=== PATIENT | female | born 2000 | race Caucasian/White ===

== ENCOUNTER 2023-06-13 20:50 | Emergency (ER) | payer SELFPAY ==
[~2023-06-13] VITALS: Ht 149.9 cm; Wt 63.5 kg
[2023-06-13 20:55] VITALS: BP_SYST 147; PULSE 100; RESP 17; TEMP 97.7; O2SAT 98
--- NOTE | 2023-06-13 21:00 | NUR ---
Patient triaged and placed in waiting room. VSS and patient appears in no acute distress at this time. Accompanied by self, awaiting available bed, and MD notified of need for MSE. Provided with urine cup.
--- NOTE | 2023-06-13 21:25 | NUR ---
Patient to ER bed 02 to gown for evaluation. Side rails up. Report given to CHRISTOPHER GONSALEZ.
--- NOTE | 2023-06-13 21:32 | NUR ---
PT BIB BY SELF C/O OF VOMITING, NAUSEA, BACK PAIN, AND LOWER PELVIC PAIN. PT HAS A HX OF FIBROIDS, OVARIAN CYST, AND ENDOMETRIOSIS. PT EYES OPEN SPONTANEOUSLY. PT IS ALERT AND ORIENTED TO PERSON, PLACE, TIME , AND SITUATION. PT OBEYS COMMANDS. PT DENIES AUDITORY OR VISUAL ISSUES. PT DENIES SOB OR CHEST PAIN. PT DENIES LIGHTHEADEDNESS. PT PULSES ARE WEAK ON THE RIGHT RADIAL. PT SKIN IS WARM TO TOUCH. PT DENIES MUSCULOSKELETAL PAIN AT THIS TIME. PT STATES SHE IS IN 6 OUT OF 10 PAIN IN THE LOWER PELVIS MD MADE AWARE AWATING NEW ORDERS. PT IN ROOM 2 ON THE MONITOR PLAN OF CARE CONTINUES.
--- NOTE | 2023-06-13 21:45 | NUR ---
PT UNABLE TO GIVE URINE FOR UA AND . MD MADE AWARE NO NEW ORDERS IN PLACE. PLAN OF CARE CONTINUES.
--- NOTE | 2023-06-13 21:54 | NUR ---
ER at bedside examining patient.
[2023-06-13] MEDS ORDERED: ONDANSETRON HCL 4 MG/2 ML VIAL IVP ONE (22:00)
[2023-06-13] MEDS ORDERED: NACL 0.9% 1,000 ML IV ONE (22:00)
[2023-06-13 22:17] LABS: BASOPHILS # (AUTO) 0.1 K/uL (0.0-0.2); BASOPHILS % (AUTO) 0.7 % (0.0-2.0); EOSINOPHILS % (AUTO) 0.3 % (0.0-4.0); HEMATOCRIT 41.7 % (36-48); HEMOGLOBIN 13.6 g/dL (12.0-16.0); LYMPHOCYTES # (AUTO) 1.9 K/uL (1.0-5.5); LYMPHOCYTES % (AUTO) 13.6 % (20.5-51.5); MEAN CORPUSCULAR HEMOGLOBIN 29 pg (27-31); MEAN CORPUSCULAR HGB CONC 33 % (32-36); MEAN CORPUSCULAR VOLUME 88 fL (79.0-98.0); MONOCYTES # (AUTO) 0.9 K/uL (0.0-1.0); MONOCYTES % (AUTO) 6.5 % (1.7-9.3); NEUTROPHILS % (AUTO) 78.9 % (40.0-70.0); PLATELET COUNT (AUTO) 370 K/uL (130-430); RED BLOOD CELL COUNT(AUTO) 4.72 MIL/uL (4.2-6.2)
[2023-06-13 22:27] LABS: ALBUMIN 3.6 g/dL (3.4-4.8); CALCIUM 8.6 mg/dL (8.4-11.0); CREATININE 0.58 mg/dL (0.55-1.30); TOTAL BILIRUBIN 0.4 mg/dL (0.0-1.0)
--- NOTE | 2023-06-13 22:44 | NUR ---
# 22 gauge angiocath placed to LEFT HAND. Use of asceptic technique. Opsite placed over site. Blood return noted. Flushed with 10 cc of normal saline. No evidence of infiltration noted. Patient tolerated well.
--- NOTE | 2023-06-13 22:45 | NUR ---
PT GIVEN 4MG ZOFRAN FOR NAUSEA AND VOMITING. PT STARTED ON 1L NS WIDE OPEN.
[2023-06-13 23:51] LABS: BILIRUBIN,URINE NEGATIVE (NEGATIVE); BLOOD, URINE 1+ (NEGATIVE); CLARITY/URINE CLEAR (CLEAR); COLOR,URINE YELLOW (YELLOW); GLUCOSE,URINE NEGATIVE (NEGATIVE); KETONES,URINE 1+ (NEGATIVE); LEUKOCYTE ESTERASE ,URINE NEGATIVE (NEGATIVE); NITRITE, URINE NEGATIVE (NEGATIVE); PROTEIN URINE NEGATIVE (NEGATIVE)
[2023-06-14 00:21] LABS: BACTERIA,URINE RARE /HPF (None Seen)
[2023-06-14] MEDS ORDERED: ONDA-8 TL (00:26)
[2023-06-14 01:01] VITALS: BP_SYST 117; PULSE 71; RESP 16; TEMP 97.7; O2SAT 97
--- NOTE | 2023-06-14 01:03 | NUR ---
Patient given written and verbal discharge instructions and verbalizes understanding. ER MD discussed with patient the results and treatment provided. Patient in stable condition. ID arm band removed. IV catheter removed intact and dressing applied, no active bleeding. Rx of ONDANSETRON given. Patient educated on pain management and to follow up with PMD. Pain Scale 6 OUT OF 10. Opportunity for questions provided and answered. Medication side effect fact sheet provided.
== END 2023-06-14 01:03 | disposition home or self-care (01) ==
LOC: SED 20:50
DX: Z11.3 Encounter for screening for infections with a predominantly sexual mode of transmission (principal); R11.10 Vomiting, unspecified; R10.9 Unspecified abdominal pain; Z79.899 Other long term (current) drug therapy
CPT/HCPCS: 99284; 96374; 80053; 81000; 83690; 85025; 36415; 93005; 81025; 87491; J2405